=== PATIENT | female | born 1980 | race Hispanic/Latino ===

== ENCOUNTER 2022-03-22 00:37 | Observation (INO) | payer MEDICAID, SELFPAY ==
[2022-03-22] VITALS (36 sets, daily range): BP systolic 102–139; BP diastolic 55–83; PULSE 84–119; RESP 12–26; TEMP 36.8–39.4; O2SAT 95–100
--- NOTE | ~2022-03-22 | CT_ITS ---
EXAMINATION: CT abdomen pelvis w con DATE: 03/22/2022 02:34 INDICATION: Right lower quadrant abdominal pain. TECHNIQUE: Computed tomography (CT) of the abdomen and pelvis was performed with 100 mL Omnipaque 350 intravenous contrast. Automated exposure control and iterative reconstruction technique were employe d. The dose-length product was 1298.71 mGy-cm. COMPARISON: None. FINDINGS: The visualized portions of the lung bases demonstrate mild atelectasis. No pleural effusion . The heart size is normal. No pericardial effusion. There is a small sliding hiatal hernia. The live r, gallbladder, spleen, pancreas, adrenal glands, and left kidney are normal. There is a small area o f hypoattenuation in right kidney. There is right-sided urothelial thickening and enhancement. There are no dilated loops of bowel. The appendix is normal. There are no pathologically enlarged lymph nod es. There is no free intraperitoneal fluid. There is moderate thoracic spondylosis and mild lumbar sp ondylosis. IMPRESSION: 1. Right-sided pyelonephritis. Reviewed, dictated and finalized at location A.
[2022-03-22 00:46] LABS: Glucose Point of Care 306 mg/dl (65-105)
[2022-03-22 01:30] LABS: Basophils Percent Auto 0.1 % (0.2-1.2); Eosinophils Absolute Auto 0.2 K/mm3 (0-0.3); Eosinophils Percent Auto 1.5 % (0-4.4); Hematocrit 39.3 % (37.0-47.0); Immature Granulocyte Absolute 0.04 K/mm3 (0.00-0.031); Immature Granulocyte Percent A 0.4 % (0-0.5); Lymphocytes Absolute Auto 1.14 K/mm3 (0.9-3.2); Lymphocytes Percent Auto 11.2 % (18.3-44.2); Mean Corpuscular HGB Conc 33.1 g/dl (32-36); Mean Corpuscular Volume 84.7 fl (80-100); Mean Platelet Volume 9.3 fl (7.4-10.4); Monocytes Absolute Auto 0.8 K/mm3 (0.1-0.6); Monocytes Percent Auto 8.3 % (2.6-8.5); Neutrophils Percent Auto 78.5 % (45.5-73.1); Platelet Count Result 354 k/mm3 (150-375); Red Blood Count 4.64 M/mm3 (4.2-5.4); Red Cell Distribution Width 13.2 % (11.5-14.5); White Blood Count 10.2 K/mm3 (4.5-10.0)
[2022-03-22 01:32] LABS: Appearance Urine Cloudy (Clear); Bilirubin Urine Negative (Negative); Blood Urine 1+ (Negative); Glucose Urine UA 2+ mg/dL (Negative); Ketones Urine 2+ mg/dL (Negative); Leukocyte Esterase Ur 3+ LEU/UL (Negative); Nitrate Urine Positive (Negative); Protein Urine Negative (Negative); Specific Grav Ur 1.015 (1.001-1.035)
[2022-03-22 01:39] LABS: Bacteria Urine Trace /hpf; Squamous Epithelial Cell Urine Rare /hpf (Few); WBC Urine >75 /hpf
[2022-03-22 01:41] LABS: Alanine Aminotransferase 27 U/L (6-35); Albumin Level 4.3 g/dL (3.5-5.1); Alkaline Phosphatase 150 U/L (38-126); Anion Gap 13 mmol/L (8-16); Aspartate Amino Transferase 26 U/L (14-36); Bilirubin,Total 0.6 mg/dL (0.2-1.3); Blood Urea Nitrogen 10 mg/dL (7-17); Carbon Dioxide 23 mmol/L (22-30); Chloride 98 mmol/L (98-107); Estimated CRCL calculation 106 ml/min; Estimated Glomerular Filt Rate > 60; Glucose 309 mg/dL (65-110); Lipase 68 U/L (23-300); Potassium 3.5 mmol/L (3.4-5.0); Sodium 134 mmol/L (137-145)
[2022-03-22 01:51] LABS: Add Urine Microscopic? YES; Color Urine Light Yellow (Yellow)
--- NOTE | 2022-03-22 01:56 | ED.GENADULT ---
HPI - General Adult General Chief complaint: Abdominal Pain Stated complaint: ABD pain Time Seen by Provider: 03/22/22 01:38 History of Present Illness HPI narrative: Patient is Niuean-speaking. The translation service was used during the interview. This is a 41-year-old female presents to the ED with 3 days of abdominal pain. Pain is located in the right lower quadrant. It is described as burning. It is starting to spread to the rest of her abdomen. Pain is getting worse. She has never experienced pain like this before. It is associated w/fevers. Patient still has her appendix. Patient also notes dysuria and increased urinary frequency Patient's last menstrual period was in February. She says that she is not because she had a surgery although she is not sure which one. Related Data Allergies Allergy/AdvReac Type Severity Reaction Status Date / Time No Known Allergies Allergy Verified 03/22/22 00:55 Review of Systems Review of Systems: CONSTITUTIONAL: Denies night sweats. EYES: No eye pain ENT: Denies rhinorrhea CARDIOVASCULAR: Denies palpitations RESPIRATORY: Denies hemoptysis GASTROINTESTINAL: Denies hematemesis GENITOURINARY: Denies hematuria. SKIN: Denies rash MUSCULOSKELETAL: Denies myalgia. NEUROLOGIC: Denies weakness. PSYCHIATRIC: Denies delusions PMFSH Past Medical History Medical History Diabetes Social History Social History (Updated 03/22/22 @ 02:03 by Tanner Guaman MD) Social History: patient drinks occasionally, denies tobacco or drug use. Exam Narrative: APPEARANCE: Patient appears very uncomfortable. She is rolling holding her of the abdomen. Head atraumatic. EYES: PERRLA/EOMI, NOSE: Normal no drainage NECK: Supple, Trachea midline RESPIRATORY: CTAB, No increased work of breathing. CARDIOVASCULAR: S1S2 appreciated ABDOMINAL: Abdomen is obese. There is tenderness to palpation in the right lower quadrant and suprapubic area. There is no rebound tenderness in the left side. MUSCULOSKELETAl: No obvious deformities NEURO: Alert. Moving 4/4 extremities SKIN:: Warm, dry. Normal color PSYCHIATRIC: Normal affect Course Vital Signs Vital signs: Vital Signs Temperature 103.0 F H 03/22/22 00:44 Pulse Rate 119 H 03/22/22 00:44 Respiratory Rate 26 H 03/22/22 00:44 Blood Pressure 136/66 03/22/22 00:44 Pulse Oximetry 98 03/22/22 00:44 Oxygen Delivery Room Air 03/22/22 00:44 Temperature 103.0 F H 03/22/22 00:44 Pulse Rate 119 H 03/22/22 00:44 Respiratory Rate 26 H 03/22/22 00:44 Blood Pressure 136/66 03/22/22 00:44 Pulse Oximetry 98 03/22/22 00:44 Oxygen Delivery Room Air 03/22/22 00:44 Medical Decision Making MDM Narrative Medical decision making narrative: This is a 41-year-old female presenting ED with abdominal pain. She is tachycardic and febrile. She has tenderness that localizes the right lower quadrant and suprapubic area. Differential is broad includes appendicitis, ovarian torsion, kidney stone, urinary tract infection. The patient is in significant distress in a emergent CT abdomen pelvis has been ordered. Lab work has been ordered. 2 L of fluid and 0.[address] ordered. [address] abdomen pelvis showed a thickened right-sided renal pelvic urothelium and right ear extending level urinary bladder compatible with right-sided highlight is. Gallbladder and appendix were normal. These findings are consistent with patient's urinalysis which showed greater than 75 white blood cells per high-power field, nitrite and leuk esterase. The patient will be started on ceftriaxone. Evaluation the vital signs have improved. My interpretation playground monitor sinus normal sinus rhythm. Blood pressure is 111/66 and patient is a 95% on room air. 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 Vital Signs Vital Signs: Vital Signs
[2022-03-22 02:06] LABS: Pregnancy On Board Control Positive; Urine Pregnancy Test Negative
--- NOTE | 2022-03-22 02:06 | PC.NURSE ---
Per senior engineering tech, pt's urine HCG test is NEGATIVE. Reported to greenhouse technician.
[2022-03-22] MEDS: HYDROmorphone HCL INJ (*CRX) 1 MG/ML SYR 0.5 MG IV PUSH (02:15)
[2022-03-22] MEDS: SODIUM CHLORIDE 0.9% IV 2,000 ML 999 ML IV CONT (02:16)
--- NOTE | 2022-03-22 02:20 | PC.NURSE ---
Pt in CT.
[2022-03-22 05:19] LABS: SARS-CoV-2 RNA PCR Positive
--- NOTE | 2022-03-22 08:06 | ADMGEN ---
This patient, Mayte Noonan, was admitted to [facility] Surg Room 307-01. Patient/family oriented to hospital policies and general routines including ID bracelet, bed and alarms, visiting hours, pain management, procedures, bathroom and other care routines, personal items, smoking policy, room service/diet, and visiting hours. Information on how to activate the Rapid Response Team has been discussed. Patient/Family are encouraged to report perceived risks to care and to ask questions if they do not understand what they are told or what they should do.
[2022-03-22 08:58] LABS: Lactic Acid Reflex 0.9 mmol/L (0.7-2.0)
--- NOTE | 2022-03-22 13:57 | PM.IMHP ---
H&P: HPI History of Present Illness Date/Time: 03/22/22 13:57 Chief Complaint: Abdominal pain Narrative: ED-HPI narrative: This is a 41-year-old female presents to the ED with 3 days of abdominal pain.? Pain is located in the right lower quadrant.? It is described as burning.? It is starting to spread to the rest of her abdomen. ? Pain is getting worse.? ? She has never experienced pain like this before.? It is associated w/fevers.? Patient still has her appendix. ? Patient also notes dysuria and increased urinary frequency Patient's last menstrual period was in February.? She says that she is not because she had a surgery although she is not sure which one.? Patient is Singaporean-speaking.? upon arrival patient had fever of 103, tachycardia, tachypnea, has elevated white counts, and CT scan of abdomen showed Right-sided pyelonephritis, patient met the criteria for sepsis most likely secondary to pyelonephritis, we started patient on ceftrixone 2g IV qdaily, will do urine and blood culture, currently pending and will follow up, incidental finding patient is positive for COVID not requiring any oxygen and does not have any complaints of cough or shortness of breath, will monitor. patient admitted as a inpatient most likely patient will stay 2 midnights with pyelonephritis and COVID Review of Systems Review of Systems: CONSTITUTIONAL: Denies night sweats. EYES: No eye pain ENT: Denies rhinorrhea CARDIOVASCULAR: Denies palpitations RESPIRATORY: Denies hemoptysis GASTROINTESTINAL: Denies hematemesis GENITOURINARY: Denies hematuria. SKIN: Denies rash MUSCULOSKELETAL: Denies myalgia. NEUROLOGIC: Denies weakness. PSYCHIATRIC: Denies delusions [facility] Past Medical History Medical History Diabetes Social History Social History (Updated 03/22/22 @ 02:03 by Tanner Guaman MD) Social History: patient drinks occasionally, denies tobacco or drug use. Alcohol intake: never Substance use: never Spiritual care concerns: No Meds Home Medications and Allergies Allergies Allergy/AdvReac Type Severity Reaction Status Date / Time No Known Allergies Allergy Verified 03/22/22 00:55 Vital Signs Vital Signs - 24 hr 03/22/22 00:44 03/22/22 01:21 03/22/22 01:22 Temperature 103.0 F H Pulse Rate 119 H Respiratory Rate 26 H Blood Pressure 136/66 124/70 Pulse Oximetry 98 98 100 Oxygen Delivery Room Air 03/22/22 01:30 03/22/22 01:31 03/22/22 01:45 Temperature Pulse Rate Respiratory Rate Blood Pressure 124/76 Pulse Oximetry 97 99 100 Oxygen Delivery 03/22/22 01:46 03/22/22 02:00 03/22/22 02:01 Temperature Pulse Rate Respiratory Rate Blood Pressure 133/72 132/72 Pulse Oximetry 98 99 100 Oxygen Delivery 03/22/22 02:15 03/22/22 02:16 03/22/22 02:33 Temperature Pulse Rate Respiratory Rate Blood Pressure 127/73 Pulse Oximetry 100 100 96 Oxygen Delivery 03/22/22 02:37 03/22/22 02:45 03/22/22 02:46 Temperature Pulse Rate Respiratory Rate Blood Pressure 139/83 137/76 Pulse Oximetry 99 95 95 Oxygen Delivery 03/22/22 03:00 03/22/22 03:01 03/22/22 03:15 Temperature Pulse Rate Respiratory Rate Blood Pressure 129/77 Pulse Oximetry 95 95 97 Oxygen Delivery 03/22/22 03:16 03/22/22 03:30 03/22/22 03:31 Temperature Pulse Rate Respiratory Rate Blood Pressure 124/75 127/74 Pulse Oximetry 96 97 98 Oxygen Delivery 03/22/22 03:44 03/22/22 03:45 03/22/22 03:46 Temperature Pulse Rate 95 94 93 Respiratory Rate 12 18 17 Blood Pressure 123/67 115/66 Pulse Oximetry 97 97 97 Oxygen Delivery 03/22/22 04:00 03/22/22 04:01 03/22/22 04:15 Temperature Pulse Rate 92 95 Respiratory Rate 15 14 Blood Pressure 121/66 Pulse Oximetry 95 95 96 Oxygen Delivery 03/22/22 04:16 03/22/22 04:30 03/22/22 04:31 Temperature P
[2022-03-22 16:25] LABS: Hemoglobin A1C 10.3 % (<5.7)
[2022-03-22 16:39] LABS: Glucose Point of Care 298 mg/dl (65-105)
[2022-03-22] MEDS: INSULIN ASPART (*BKC) 100 UNITS/ML SUB-Q (17:34)
[2022-03-22] MEDS: HYDROcodone/acetaminophen (*CRX) 5-325 MG TABLET 1 TAB PO (17:35)
[2022-03-22] MEDS: GLIMEPIRIDE 2 MG TABLET PO (17:36)
[2022-03-22] MEDS: metFORMIN HCL XR 500 MG TAB.SR.24H PO (17:36)
[2022-03-23 05:55] VITALS: BP 126/67; PULSE 82; RESP 18; TEMP 35.7; O2SAT 99
[2022-03-23 06:23] LABS: Hemoglobin 12.2 g/dL (12.0-15.0); Mean Corpuscular HGB Conc 31.3 g/dl (32-36); Mean Corpuscular Volume 89.4 fl (80-100); Mean Platelet Volume 9.6 fl (7.4-10.4); Platelet Count Result 295 k/mm3 (150-375); Red Blood Count 4.36 M/mm3 (4.2-5.4); Red Cell Distribution Width 12.7 % (11.5-14.5); White Blood Count 8.6 K/mm3 (4.5-10.0)
[2022-03-23 06:41] LABS: Anion Gap 12 mmol/L (8-16); Blood Urea Nitrogen 7 mg/dL (7-17); Calcium 7.8 mg/dL (8.4-10.2); Carbon Dioxide 23 mmol/L (22-30); Chloride 99 mmol/L (98-107); Estimated CRCL calculation 106 ml/min; Estimated Glomerular Filt Rate > 60; Glucose 256 mg/dL (65-110); Potassium 3.2 mmol/L (3.4-5.0); Sodium 134 mmol/L (137-145)
[2022-03-23 07:55] LABS: Glucose Point of Care 246 mg/dl (65-105)
[2022-03-23 09:06] VITALS: O2SAT 96
[2022-03-23] MEDS: GLIMEPIRIDE 2 MG TABLET PO (09:55)
[2022-03-23] MEDS: metFORMIN HCL XR 500 MG TAB.SR.24H PO (09:55)
[2022-03-23] MEDS: cefTRIAXone 2 GM in SODIUM CHLORIDE 0.9% IV 100 ML 200 ML IVPB (09:55)
[2022-03-23] MEDS: INSULIN ASPART (*BKC) 100 UNITS/ML SUB-Q ×3 (09:56→16:20)
[2022-03-23] MEDS: ENOXAPARIN 40 MG/0.4 ML SYRINGE SUB-Q (09:56)
[2022-03-23] MEDS: HYDROcodone/acetaminophen (*CRX) 5-325 MG TABLET 1 TAB PO ×3 (10:09→21:43)
[2022-03-23 11:42] LABS: Glucose Point of Care 301 mg/dl (65-105)
--- NOTE | 2022-03-23 12:46 | PM.IMPN ---
Progress Note: A&P Assessment and Plan (1) Acute pyelitis: Code(s): N10 - Acute pyelonephritis Status: Acute Assessment and Plan: upon arrival patient had fever of 103, tachycardia, tachypnea, has elevated white counts, and CT scan of abdomen showed Right-sided pyelonephritis, patient met the criteria for sepsis most likely secondary to pyelonephritis, we started patient on ceftrixone 2g IV qdaily, will do urine and blood culture, currently pending and will follow up, incidental finding patient is positive for COVID not requiring any oxygen and does not have any complaints of cough or shortness of breath, will monitor. 03/23/22 12:46 03/23/2022 interval history: upon arrival patient had fever of 103, tachycardia, tachypnea, had elevated white counts, and CT scan of abdomen showed Right-sided pyelonephritis, patient met the criteria for sepsis most likely secondary to pyelonephritis, we started patient on ceftrixone 2g IV qdaily, will do urine and blood culture, currently pending and will follow up, patient is been afibrial for 24 hours, her culture is growing E coli and blood culture is pending, will continue ceftriaxone, and follow up, patient has history of DM and has been not been taking her DM medication her A1c is 10.3, I have started patient on metformin and glimepride, will CPM, incidental finding patient is positive for COVID not requiring any oxygen and does not have any complaints of cough or shortness of breath, will monitor. Patient remains clinically stable, (2) Sepsis: Code(s): A41.9 - Sepsis, unspecified organism Status: Acute Assessment and Plan: patient with criteria for sepsis upon arrival, most likely secondary to to pyelonephritis (3) Diabetes: Code(s): E11.9 - Type 2 diabetes mellitus without complications Status: Acute Assessment and Plan: will start the patient on metformin and glimepiride and monitor with sliding scale, will do hemoglobin A1c. Subjective Date/time seen: 03/23/22 12:46 03/23/2022 interval history: upon arrival patient had fever of 103, tachycardia, tachypnea, had elevated white counts, and CT scan of abdomen showed Right-sided pyelonephritis, patient met the criteria for sepsis most likely secondary to pyelonephritis, we started patient on ceftrixone 2g IV qdaily, will do urine and blood culture, currently pending and will follow up, patient is been afibrial for 24 hours, her culture is growing E coli and blood culture is pending, will continue ceftriaxone, and follow up, patient has history of DM and has been not been taking her DM medication her A1c is 10.3, I have started patient on metformin and glimepride, will CPM, incidental finding patient is positive for COVID not requiring any oxygen and does not have any complaints of cough or shortness of breath, will monitor. Patient remains clinically stable, Exam Narrative: Patient is comfortable, NAD HEENT: eyes are clear and none icteric LUNGS: normal respiratory effort ABD: not distended Lower extremities: no edema SKIN: nonjaundiced Neuro: grossly intact. Objective Data Vital Signs Vital Signs: Vital Signs - 24 hr 03/22/22 16:00 03/22/22 21:49 03/22/22 20:10 Temperature 99.5 F 99.3 F Pulse Rate 91 87 87 Respiratory Rate 16 18 18 Blood Pressure 110/61 110/81 Pulse Oximetry 97 96 96 Oxygen Delivery Room Air 03/23/22 05:55 03/23/22 09:06 03/23/22 08:00 Temperature 96.3 F L Pulse Rate 82 Respiratory Rate 18 Blood Pressure 126/67 Pulse Oximetry 99 96 Oxygen Delivery Room Air Room Air Intake/Output Intake/Output: Intake & Output 03/20/22 03/21/22 03/22/22 03/23/22 23:59 23:59 23:59 23:59 Intake Total 3560 604 Balance 3560 604 Meds/Results Medications: Active Medications Generic Name Dose Route Start Last Admin Trade Name Freq PRN Reason Stop Dose Admin Acetaminophen 500 mg 03/22/22 16:16 Acetaminophen 500 Mg Tablet P
[2022-03-23] MEDS: POTASSIUM CHLORIDE 20 MEQ TABLET 40 MEQ PO (12:57)
[2022-03-23 13:48] VITALS: BP 127/78; PULSE 89; RESP 12; TEMP 36.5; O2SAT 97
[2022-03-23 16:19] LABS: Glucose Point of Care 240 mg/dl (65-105)
[2022-03-23 17:03] LABS: Glucose Point of Care 253 mg/dl (65-105)
[2022-03-23 21:59] LABS: Glucose Point of Care 289 mg/dl (65-105)
[2022-03-23 22:00] VITALS: BP 125/75; PULSE 80; RESP 18; TEMP 37.1; O2SAT 98
[2022-03-24] MEDS: HYDROcodone/acetaminophen (*CRX) 10-325 MG TABLET 1 TAB PO ×3 (05:42→23:45)
[2022-03-24 06:00] VITALS: BP 128/73; PULSE 81; RESP 19; TEMP 36.9; O2SAT 96
[2022-03-24 06:51] LABS: Hematocrit 35.8 % (37.0-47.0); Hemoglobin 11.8 g/dL (12.0-15.0); Mean Corpuscular Hemoglobin 28.4 pg (26-34); Mean Corpuscular Volume 86.1 fl (80-100); Platelet Count Result 331 k/mm3 (150-375); Red Blood Count 4.16 M/mm3 (4.2-5.4); Red Cell Distribution Width 12.7 % (11.5-14.5); White Blood Count 6.9 K/mm3 (4.5-10.0)
[2022-03-24 06:57] LABS: Anion Gap 11 mmol/L (8-16); Blood Urea Nitrogen 8 mg/dL (7-17); Calcium 7.9 mg/dL (8.4-10.2); Carbon Dioxide 24 mmol/L (22-30); Chloride 98 mmol/L (98-107); Estimated CRCL calculation 128 ml/min; Estimated Glomerular Filt Rate > 60; Glucose 264 mg/dL (65-110); Potassium 3.7 mmol/L (3.4-5.0); Sodium 133 mmol/L (137-145)
[2022-03-24 07:32] LABS: Glucose Point of Care 255 mg/dl (65-105)
[2022-03-24] MEDS: INSULIN ASPART (*BKC) 100 UNITS/ML SUB-Q ×3 (08:24→17:15)
[2022-03-24] MEDS: cefTRIAXone 2 GM in SODIUM CHLORIDE 0.9% IV 100 ML 200 ML IVPB (08:26)
[2022-03-24] MEDS: ENOXAPARIN 40 MG/0.4 ML SYRINGE SUB-Q (08:26)
[2022-03-24] MEDS: GLIMEPIRIDE 2 MG TABLET PO (08:26)
[2022-03-24] MEDS: metFORMIN HCL XR 500 MG TAB.SR.24H PO (08:26)
[2022-03-24 11:14] LABS: Glucose Point of Care 275 mg/dl (65-105)
[2022-03-24 14:00] VITALS: BP 124/73; PULSE 89; RESP 19; TEMP 36.2; O2SAT 100
[2022-03-24 16:18] LABS: Glucose Point of Care 275 mg/dl (65-105)
--- NOTE | 2022-03-24 17:20 | PM.IMPN ---
Progress Note: A&P Assessment and Plan (1) Acute pyelitis: Code(s): N10 - Acute pyelonephritis Status: Acute Assessment and Plan: Patient had fever of 103, tachycardia, tachypnea, has elevated white counts, and CT scan of abdomen showed Right-sided pyelonephritis. Pt has no fever today continue current treatment IV fluids and IV rocephin. 03/23/22 12:46 03/23/2022 interval history: upon arrival patient had fever of 103, tachycardia, tachypnea, had elevated white counts, and CT scan of abdomen showed Right-sided pyelonephritis, patient met the criteria for sepsis most likely secondary to pyelonephritis, we started patient on ceftrixone 2g IV qdaily, will do urine and blood culture, currently pending and will follow up, patient is been afibrial for 24 hours, her culture is growing E coli and blood culture is pending, will continue ceftriaxone, and follow up, patient has history of DM and has been not been taking her DM medication her A1c is 10.3, I have started patient on metformin and glimepride, will CPM, incidental finding patient is positive for COVID not requiring any oxygen and does not have any complaints of cough or shortness of breath, will monitor. Patient remains clinically stable, (2) Sepsis: Code(s): A41.9 - Sepsis, unspecified organism Status: Acute Assessment and Plan: Secondary to to pyelonephritis (3) Diabetes: Code(s): E11.9 - Type 2 diabetes mellitus without complications Status: Acute Assessment and Plan: Patient on metformin and glimepiride, accuchecks, SSI Subjective Date/time seen: 03/24/22 17:20 Pt admitted pyelonephritis and COVID 03/23/2022 interval history:?upon arrival patient had fever of 103, tachycardia, tachypnea,? had elevated white counts, and CT scan of abdomen showed?Right-sided pyelonephritis,? patient met the criteria for sepsis most likely secondary to pyelonephritis, we started patient on ceftrixone 2g IV qdaily, will do urine and blood culture, currently pending and will follow up, patient is been afibrial for 24 hours, her culture is growing E coli and blood culture is pending, will continue ceftriaxone, and follow up, patient has history of DM and has been not been taking her DM medication her A1c is 10.3, I have started patient on metformin and glimepride, will CPM,?incidental finding patient is positive for COVID not requiring any oxygen. Review of Systems Constitutional: Comments: Mild abdominal pains Exam Narrative: GENERAL: lady LUNGS: normal respiratory effort ABDO: not distended Lower extremities: no edema SKIN: nonjaundiced Neuro: grossly intact. Objective Data Vital Signs Vital Signs: Vital Signs - 24 hr 03/23/22 22:00 03/23/22 20:00 03/24/22 06:00 Temperature 37.1 C 36.9 C Pulse Rate 80 81 Respiratory Rate 18 19 Blood Pressure 125/75 128/73 Pulse Oximetry 98 96 Oxygen Delivery Room Air 03/24/22 08:00 03/24/22 14:00 Temperature 36.2 C L Pulse Rate 89 Respiratory Rate 19 Blood Pressure 124/73 Pulse Oximetry 100 Room Air . Younger female speaking. LUNGS: normal respiratory effort ABDO: not distended Lower extremities: no edema SKIN: nonjaundiced Neuro: grossly intact Intake/Output Intake/Output: Intake & Output 03/21/22 03/22/22 03/23/22 03/24/22 23:59 23:59 23:59 23:59 Intake Total 3560 1184 740 Balance 3560 1184 740 Meds/Results Medications: Active Medications Generic Name Dose Route Start Last Admin Trade Name Freq PRN Reason Stop Dose Admin Acetaminophen 500 mg 03/22/22 16:16 Acetaminophen 500 Mg Tablet PO Q4H PRN Mild Pain (1-3) or Fever Hydrocodone Bitart/Acetaminophen 1 tab 03/22/22 16:17 03/23/22 21:43 Hydrocodone/Acetaminophen (*Crx) 5-325 Mg Tablet PO 1 tab Q4H PRN Administration Pain Rated 4-6 Hydrocodone Bitart/Acetaminophen 1 tab 03/22/22 16:18 03/24/22 05:42 Hydrocodon
[2022-03-24 20:42] LABS: Glucose Point of Care 272 mg/dl (65-105)
[2022-03-24 22:00] VITALS: BP 126/82; PULSE 77; RESP 17; TEMP 37.3; O2SAT 97
[2022-03-25 06:00] VITALS: BP 115/73; PULSE 75; RESP 18; TEMP 37.4; O2SAT 98
[2022-03-25 06:24] LABS: Hematocrit 37.3 % (37.0-47.0); Hemoglobin 12.1 g/dL (12.0-15.0); Mean Corpuscular HGB Conc 32.4 g/dl (32-36); Mean Corpuscular Hemoglobin 27.9 pg (26-34); Mean Corpuscular Volume 85.9 fl (80-100); Mean Platelet Volume 9.4 fl (7.4-10.4); Platelet Count Result 366 k/mm3 (150-375); Red Blood Count 4.34 M/mm3 (4.2-5.4); Red Cell Distribution Width 12.6 % (11.5-14.5)
[2022-03-25 06:37] LABS: Anion Gap 7 mmol/L (8-16); Blood Urea Nitrogen 5 mg/dL (7-17); Calcium 8.4 mg/dL (8.4-10.2); Carbon Dioxide 27 mmol/L (22-30); Chloride 101 mmol/L (98-107); Estimated CRCL calculation 106 ml/min; Estimated Glomerular Filt Rate > 60; Glucose 235 mg/dL (65-110); Sodium 135 mmol/L (137-145)
[2022-03-25 08:07] LABS: Glucose Point of Care 234 mg/dl (65-105)
[2022-03-25] MEDS: INSULIN ASPART (*BKC) 100 UNITS/ML SUB-Q ×2 (08:52→12:18)
[2022-03-25] MEDS: cefTRIAXone 2 GM in SODIUM CHLORIDE 0.9% IV 100 ML 200 ML IVPB (08:53)
[2022-03-25] MEDS: ENOXAPARIN 40 MG/0.4 ML SYRINGE SUB-Q (08:53)
[2022-03-25] MEDS: metFORMIN HCL XR 500 MG TAB.SR.24H PO (08:53)
[2022-03-25] MEDS: GLIMEPIRIDE 2 MG TABLET PO (08:53)
[2022-03-25] MEDS: HYDROcodone/acetaminophen (*CRX) 5-325 MG TABLET 1 TAB PO (09:02)
[2022-03-25 11:41] LABS: Glucose Point of Care 300 mg/dl (65-105)
--- NOTE | 2022-03-25 13:36 | PM.DS ---
DS: Admitting Diagnosis Discharge Date 03/25/2022 Admitting Diagnosis sepsis DS: Discharge Diagnosis Discharge Diagnosis (1) Acute pyelitis: Code(s): N10 - Acute pyelonephritis Status: Acute (2) Sepsis: Code(s): A41.9 - Sepsis, unspecified organism Status: Acute (3) Diabetes: Code(s): E11.9 - Type 2 diabetes mellitus without complications Status: Acute DS: Summary Hospital Course Hospital Course: [facility] [address] [place], [place] [id number] Hospitalist Progress Note Signed with Neal Patient: Mayte Dobbs # sepsis: Patient had fever of 103, tachycardia, tachypnea,? has elevated white counts, and CT scan of abdomen showed?Right-sided pyelonephritis. Pt has no fever today continue current treatment IV fluids and IV rocephin. # acute right-sided pyelonephritis: CT evidence. Met criteria for sepsis. Started on ceftriaxone. Urine culture with this schedule coli. Will switch to Omnicef at discharge. # type 2 diabetes mellitus: Known diagnosis. she used to be on pills back in [place]. She did not bring her medication with her from [place]. she is unsure what she was on. she is planning for seeing a PMD here. will start metfmorni and amaryl for now. a1c came back at 10 Time Spent with Patient Time attestation: Total time spent providing and/or coordinating discharge services:45 mins Exam Narrative: GENERAL: The patient is well developed, not in acute distress HEENT: Nonicteric sclerae, PERRLA, EOMI. Oropharynx clear. Moist mucous membranes. Conjunctivae appear well perfused. CHEST: Chest wall is nontender. HEART: Regular rate and rhythm without murmur, rubs, or gallops LUNGS: Clear to auscultation bilaterally. no respiratory distress ABDOMEN: Soft, positive bowel sounds, right rrenal angle tenderness, no organomegaly. SKIN: No rash, no excessive bruising, petechiae, or purpura. NEUROLOGIC: Cranial nerves II-XII intact, alert and oriented x 3, no gross motor deficits EXTREMITIES: no edema, cyanosis or clubbing DS: Data Data Completed and Pending Labs on day of discharge: Labs from last 24 hours 03/25/22 03/25/22 03/25/22 11:31 07:50 05:51 WBC RBC Hgb Hct MCV MCH MCHC RDW Plt Count MPV Sodium 135 L Potassium 4.0 Chloride 101 Carbon Dioxide 27 Anion Gap 7 L BUN 5 L Creatinine 0.50 L Estim Creat Clear Calc 106 Estimated GFR > 60 Glucose 235 H POC Capillary Glucose 300 H 234 H Calcium 8.4 03/25/22 03/24/22 03/24/22 05:51 20:13 16:15 WBC 6.0 RBC 4.34 Hgb 12.1 Hct 37.3 MCV 85.9 MCH 27.9 MCHC 32.4 RDW 12.6 Plt Count 366 MPV 9.4 Sodium Potassium Chloride Carbon Dioxide Anion Gap BUN Creatinine Estim Creat Clear Calc Estimated GFR Glucose POC Capillary Glucose 272 H 275 H Calcium Preliminary micro results at discharge 03/22/22 08:38 Blood Culture - Preliminary Blood 03/22/22 08:13 Blood Culture - Preliminary Blood Imaging Radiologist's impression: ITS Impressions Abdomen/Pelvis CT 03/22/22 07:31 IMPRESSION: 1. Right-sided pyelonephritis. Discharge Plan Discharge Attending physician on discharge: Nestor Cannon Discharging Clinician: Nestor Cannon Anticipated Discharge Date/Time: 03/25/22 13:16 Patient Disposition: Home, Self-Care Activity: as tolerated Diet: heart healthy and diabetic Patient Instructions: Antibiotic Form, Pain Management (DC) Stand Alone Forms: General Discharge Information Follow-up/Referrals: PHYSICIAN,ONCOLOGY NURSE [Primary Care Provider] - 1 Week Discharge Medications: New hydrocodone-acetaminophen 5-325 mg Tablet 1 tablet PO Q6H PRN (Reason: Pain Rated 4-6) Qty: 20 0RF glimepiride 2 mg Tablet 2 mg PO DAILY@0800 Qty: 30 0RF cefdinir 300 mg capsule 300 mg PO Q12H Qt
== END 2022-03-25 15:20 | disposition home or self-care (01) ==
LOC: ANHED 04:33 → ANH3MEDSUR 05:31
PROVIDERS: Family Medicine; Admitting Provider Internal Medicine; Emergency Provider Emergency Medicine; Visit Provider Internal Medicine
DX: A41.9 Sepsis, unspecified organism (principal); N10 Acute pyelonephritis; E11.9 Type 2 diabetes mellitus without complications; U07.1 COVID-19; E66.9 Obesity, unspecified; Z68.26 Body mass index [BMI] 26.0-26.9, adult
CPT/HCPCS: 36415; 74177; 80048; 80053; 81001; 81025; 82948; 83036; 83605; 83690; 85025; 85027; 87040; 87077; 87086; 87186; 96361; 96365; 96366; 96367; 96372; 96374; 96375; 99285; A9270; C9803; G0378; J0131; J0696; J1170; J1650; J1815; J7030; Q9967; U0003; U0005